=== PATIENT | male | born 1985 | race Caucasian/White ===

== ENCOUNTER → 2018-11-16 | Outpatient (CLI) | payer OTHER ==
--- NOTE | 2018-11-16 13:40 | REP ---
MAXILLOFACIAL CT WITHOUT CONTRAST: HISTORY: Chronic pansinusitis. Minimal mucosal thickening is present in the ethmoid and left maxillary sinuses. A retention cyst is present in the right maxillary sinus. The remaining sinuses are clear. Mucosal thickening involves the left osteomeatal unit. The right osteomeatal unit is patent. The middle and inferior nasal turbinates are partially paradoxical. There is atiya bullosa of the right middle nasal turbinate. There is minimal deviation of the nasal septum to the left. The cribriform plate, medial tipton of the orbits and optic canals are intact. There is aeration of the left anterior clinoid process. The carotid canals form a segment of the posterolateral tipton of the sphenoid sinus. The sphenoid sinus septum inserts into the right internal carotid canal wall. IMPRESSION: 1. Sinus mucosal thickening as described above. 2. Right maxillary sinus retention cyst. Electronically Signed by Etienne Hatfield MD 11/16/2018 01:45 P
== END ==
LOC: M RAD 12:43
PROVIDERS: ATTEND Otolaryngology
DX: J32.4 Chronic pansinusitis (principal); J34.1 Cyst and mucocele of nose and nasal sinus

== ENCOUNTER 2019-01-11 08:25 | Day surgery (SDC) | payer OTHER ==
[~2019-01-11] VITALS: Ht 162.6 cm; Wt 81.0 kg
[~2019-01-11 08:25] MED LIST: FLON1SPR
[2019-01-11] MEDS ORDERED: LR 1,000 ML IV ONE (08:45)
[2019-01-11] MEDS ORDERED: dexameTHASONE 4 MG/ML 1ML VIAL (J1100) As Ordered ONE (08:47)
[2019-01-11] MEDS ORDERED: fentaNYL 100 MCG/2 ML INJECTION (J3010) As Ordered ONE (08:47)
[2019-01-11] MEDS ORDERED: NEOSTIGMINE 10 MG/10 ML VIAL (J2710) As Ordered ONE (08:47)
[2019-01-11] MEDS ORDERED: ROCURONIUM BROMIDE 50 MG/5 ML VIAL As Ordered ONE (08:47)
[2019-01-11] MEDS ORDERED: ONDANSETRON 4MG/2ML VIAL (J2405) As Ordered ONE (08:47)
[2019-01-11] MEDS ORDERED: LIDOCAINE 2% INJ 100 MG/5 ML SDV (FOR ANES.) As Ordered ONE (08:47)
[2019-01-11] MEDS ORDERED: PROPOFOL 200 MG/20 ML VIAL As Ordered ONE (08:47)
[2019-01-11] MEDS ORDERED: MIDAZOLAM INJ 2 MG/2 ML VIAL (J2250) As Ordered ONE (08:47)
[2019-01-11] MEDS ORDERED: GLYCOPYRROLATE INJ 0.2 MG/ML 2 ML VIAL As Ordered ONE (08:47)
[2019-01-11] MEDS ORDERED: EPINEPHrine 1MG/ML INJ 30ML MD-VIAL As Ordered ONE (10:06)
[2019-01-11] MEDS ORDERED: LIDOCAINE W/EPINEPHRINE 1% 20ML VIAL As Ordered ONE (10:06)
[2019-01-11] MEDS ORDERED: METHYLENE BLUE 0.5% (5MG/ML) 10 ML AMP (PROVAYBLUE)(Q9968 PER 1MG) As Ordered ONE (10:06)
[2019-01-11] MEDS ORDERED: PERCOCET 5MG/325MG TAB As Ordered ONE (11:46)
[2019-01-11] MEDS ORDERED: LR 1,000 ML IV SCH ×2 (12:00)
[2019-01-11] MEDS ORDERED: fentaNYL 100 MCG/2 ML INJECTION (J3010) IV PRN (12:00)
[2019-01-11] MEDS ORDERED: PERCOCET 5MG/325MG TAB PO PRN (12:00)
[2019-01-11] MEDS ORDERED: ACETAMINOPH W/CODEINE #3 TAB UD PO PRN (12:00)
[2019-01-11] MEDS ORDERED: ONDANSETRON 4MG/2ML VIAL (J2405) IV PRN (12:00)
[2019-01-11 12:50] VITALS: BP 133/83
--- NOTE | 2019-01-12 07:55 | RO ---
DATE OF PROCEDURE: 01/11/2019 PREPROCEDURE DIAGNOSES: Nasal septum deformity. Chronic rhinitis. Chronic sinusitis. POSTPROCEDURE DIAGNOSIS: Nasal septum deformity. Chronic rhinitis. Chronic sinusitis. PROCEDURE: Septoplasty. Bilateral antrostomies Bilateral turbinectomy. SURGEON: Dr. Woodrow Doan. GEOSCIENCE PROFESSOR: ANESTHESIA: General. DESCRIPTION OF PROCEDURE: Under general anesthesia with the patient intubated, the patient prepped and draped in the usual manner. I used pledgets of adrenaline 1000 and infiltrated with lidocaine, epinephrine and Marcaine. I started on the left side. I made an incision anteriorly. Elevated the subperichondrial, periosteal plan. I the quadrangular cartilage from the ethmoid plate and maxillary crest and removed portions of the maxillary crest and the ethmoid plate, which were deviated. The wound was closed with #4-0 chromic. Then I removed the lateral portion of the middle turbinate on the right side. Removed the uncinate process. Entered the natural sinus ostium and enlarged that with the forceps and microdebrider. I did the same on the left side. However, I did not remove any of the middle turbinate. Then I made an incision anterior to the inferior turbinate on both sides and I removed portions of the atiya. I closed that with a #4-0 Vicryl. Propel implants were placed in the nose. I put it between the middle turbinate and lateral nasal wall. Approximately 50 mL estimated blood loss. The patient tolerated the procedure well, was extubated and transferred to the recovery room in excellent condition.
== END 2019-01-11 13:17 | disposition home or self-care (01) ==
LOC: M SDC 08:25
PROVIDERS: ATTEND Otolaryngology
DX: J34.2 Deviated nasal septum (principal); J31.0 Chronic rhinitis; J32.9 Chronic sinusitis, unspecified; K21.9 Gastro-esophageal reflux disease without esophagitis; Z88.0 Allergy status to penicillin
CPT/HCPCS: 30140; 30520; 31267; 88300; C2625; J1100; J2250; J2405; J2710; J3010; Q9968

== ENCOUNTER → 2019-05-07 | Outpatient (CLI) | payer OTHER ==
--- NOTE | 2019-05-07 14:04 | REP ---
Clinical: Right hand pain Technique: AP, lateral, bilateral oblique views right hand . Findings: The osseous structures and joint spaces are intact and normal. There is no evidence for acute fracture or dislocation. Surrounding soft tissues are unremarkable. No subcutaneous emphysema or radiodense foreign body. Impression: Normal right hand series. No acute fracture or dislocation. Electronically Signed by Arthur Quiroz MD 05/07/2019 11:10 A
== END ==
LOC: M LRY 10:46
PROVIDERS: ATTEND Nurse Practitioner Family
DX: S69.91XA Unspecified injury of right wrist, hand and finger(s), initial encounter (principal); W18.30XA Fall on same level, unspecified, initial encounter; Y92.009 Unspecified place in unspecified non-institutional (private) residence as the place of occurrence of the external cause